=== PATIENT | female | born 1970 ===

== ENCOUNTER → 2019-09-13 | Outpatient (CLI) | payer BC, MEDICAID ==
[~2019-09-13] MED LIST: ALBU6.7H8 INH; ASPI-496 PO; CYCL5TAB PO; DICL112S2 TP; FENO160T PO; GABA-827 PO; HYDR-3237 PO; LAMO100T63 PO; LISI5TAB7 PO; LORA10TA75 PO; METF500T17 PO; PRAM0.125 PO; ROSU20TA2 PO; TRAZ-175 PO
[2019-09-13 11:54] LABS: BASOPHILS # (AUTO) 0.07 x10^3/uL (0-0.1); BASOPHILS % (AUTO) 1 % (0-1); EOSINOPHILS # (AUTO) 0.61 x10^3/uL (0-0.4); EOSINOPHILS % (AUTO) 7 % (1-7); LYMPHOCYTES # (AUTO) 2.98 x10^3/uL (1-3.4); LYMPHOCYTES % (AUTO) 34 % (22-44); MD NO; MEAN CORPUSCULAR HEMOGLOBIN 30.8 pg (27.0-34.8); MEAN CORPUSCULAR HGB CONC 33.1 g/dL (32.4-35.8); MEAN CORPUSCULAR VOLUME 93.1 fL (80-100); MEAN PLATELET VOLUME 8.7 fL (7.4-10.4); MONOCYTES # (AUTO) 0.71 x10^3/uL (0.2-0.8); MONOCYTES % (AUTO) 8 % (2-9); NEUTROPHILS # (AUTO) 4.48 x10^3/uL (1.8-6.8); NEUTROPHILS % (AUTO) 51 % (42-75); PLATELET COUNT 353 x10^3/uL (130-400); RED BLOOD COUNT 4.45 x10^6/uL (3.82-5.3); RED CELL DISTRIBUTION WIDTH 13.1 % (9.6-15.2)
[2019-09-13 12:05] LABS: ALANINE AMINOTRANSFERASE 39 U/L (12-78); ALBUMIN 4.1 g/dL (3.4-5.0); ANION GAP 7 mmol/L (5-15); CALCIUM 9.4 mg/dL (8.5-10.1); CHLORIDE 106 mmol/L (98-107); CREATININE 1.03 mg/dL (0.55-1.02)
[2019-09-13 12:07] LABS: ALKALINE PHOSPHATASE 61 U/L (45-117); BILIRUBIN,TOTAL 0.5 mg/dL (0.2-1.0); TOTAL PROTEIN 8.1 g/dL (6.4-8.2)
== END | disposition home or self-care (01) ==
LOC: STAR 10:43
PROVIDERS: ATTEND Orthopaedic Surgery
DX: Z01.818 Encounter for other preprocedural examination (principal); M17.12 Unilateral primary osteoarthritis, left knee; M25.562 Pain in left knee
CPT/HCPCS: 36415; 80053; 85025; 87081; 93005

== ENCOUNTER 2019-09-17 05:40 | Observation (INO) | payer BC, MEDICAID ==
[~2019-09-17] VITALS: Ht 160 cm; Wt 92.0 kg
[2019-09-17] MEDS ORDERED: LACTATED RINGERS 1,000 ML IV SCH (06:38)
[2019-09-17] MEDS ORDERED: MIDAZOLAM 1 MG/ML, 2ML ONE (06:39)
[2019-09-17] MEDS ORDERED: FENTANYL PF 250 MCG/5ML ONE ×2 (06:39→07:49)
[2019-09-17] MEDS ORDERED: PHENYLEPHRINE 10 MG/ML ONE (06:42)
[2019-09-17] MEDS ORDERED: TRANEXAMIC ACID 100 MG/ML, 10ML ONE (06:43)
[2019-09-17] MEDS ORDERED: KETOROLAC 60 MG/2 ML ONE (06:43)
[2019-09-17] MEDS ORDERED: VANCOMYCIN 1,000 MG ONE (06:44)
[2019-09-17] MEDS ORDERED: SODIUM CHLORIDE 0.9% 50 ML ONE (06:44)
[2019-09-17] MEDS ORDERED: morphine SULFATE/PF 1 MG/ML, 10ML ONE (06:44)
[2019-09-17] MEDS ORDERED: ROPIvacaine/PF 0.2%, 20 ML ONE ×2 (06:44)
[2019-09-17] MEDS ORDERED: EPINEPHRINE 1 MG/ML, 1ML ONE (06:44)
[2019-09-17] MEDS ORDERED: SCOPOLAMINE 1MG PATCH TD SCH (07:00)
[2019-09-17] MEDS ORDERED: HALOPERIDOL 5 MG/ML IV PRN (07:00)
[2019-09-17] MEDS ORDERED: hydrALAzine 20 MG/ML, 1ML IV PRN (07:00)
[2019-09-17] MEDS ORDERED: GABAPENTIN 300 MG CAPSULE PO ONE (07:00)
[2019-09-17] MEDS ORDERED: morphine SULFATE 10 MG/ML, 1ML IVPush PRN (07:00)
[2019-09-17] MEDS ORDERED: HYDROmorphone 1 MG/ML, 1ML INJ IVPush PRN (07:00)
[2019-09-17] MEDS ORDERED: OXYcodone 5 MG/5 ML ORAL.SOL UDC PO PRN (07:00)
[2019-09-17] MEDS ORDERED: ACETAMINOPHEN 500 MG TABLET PO ONE (07:00)
[2019-09-17] MEDS ORDERED: MEPERIDINE/PF 25MG/0.5ML IVPush PRN (07:00)
[2019-09-17] MEDS ORDERED: FENTANYL PF 100 MCG/2ML IV PRN (07:00)
[2019-09-17] MEDS ORDERED: CHLORHEXIDINE 15 ML UDC MM ONE (07:00)
[2019-09-17] MEDS ORDERED: LIDOCAINE-MPF 1%, 2ML INFIL ONE (07:00)
[2019-09-17] MEDS ORDERED: PROMETHAZINE 25 MG/ML, 1ML IVPush PRN (07:00)
[2019-09-17] MEDS ORDERED: ALBUTEROL SULFATE 2.5 MG/3 ML NPPB PRN (07:00)
[2019-09-17] MEDS ORDERED: LABETALOL 5MG/ML, 20ML IV PRN (07:00)
[2019-09-17] MEDS ORDERED: GLYCOPYRROLATE 0.2MG/1ML, 5ML ONE (07:44)
[2019-09-17] MEDS ORDERED: ONDANSETRON 2MG/ML, 2ML ONE (07:44)
[2019-09-17] MEDS ORDERED: DEXAMETHASONE 4 MG/ML, 1ML ONE (07:44)
[2019-09-17] MEDS ORDERED: ROCURONIUM 10MG/ML,5ML ONE (07:44)
[2019-09-17] MEDS ORDERED: NEOSTIGMINE 1 MG/ML, 10ML ONE (07:44)
[2019-09-17] MEDS ORDERED: PROPOFOL 10 MG/ML, 20ML ONE (07:44)
[2019-09-17] MEDS ORDERED: CEFAZOLIN 1,000 MG ONE (07:44)
[2019-09-17] MEDS ORDERED: METHYLENE BLUE 10 MG/ML 10ML ONE (07:49)
[2019-09-17] MEDS ORDERED: FENTANYL PF 100 MCG/2ML ONE ×2 (08:18→09:17)
[2019-09-17] MEDS ORDERED: HYDROmorphone 1 MG/ML, 1ML INJ ONE (09:18)
[2019-09-17] MEDS ORDERED: OXYcodone 5 MG/5 ML ORAL.SOL UDC ONE (09:18)
[2019-09-17] MEDS ORDERED: ONDANSETRON 2MG/ML, 2ML IVPush PRN (11:30)
[2019-09-17] MEDS ORDERED: PENNSAID HOMEMISC PRN (12:00)
[2019-09-17] MEDS ORDERED: ALBUTEROL SULFATE 2.5 MG/3 ML HHN PRN (12:00)
[2019-09-17] MEDS ORDERED: POTASSIUM CHLORIDE 10 MEQ in D5%-0.45% NACL 1,000 ML IV SCH (12:00)
[2019-09-17] MEDS ORDERED: HYDROcodone/APAP 7.5-325MG/15ML UDC PO PRN (12:00)
[2019-09-17] MEDS: KETOROLAC 30 MG/1 ML IVPush SCH ×2 (12:34→20:57)
[2019-09-17] MEDS: ACETAMINOPHEN 325 MG TABLET PO SCH ×4 (12:35→23:38)
[2019-09-17] MEDS ORDERED: LORATADINE 10 MG TABLET PO PRN (16:00)
[2019-09-17] MEDS: metFORMIN 500 MG TABLET PO SCH (16:29)
[2019-09-17] MEDS: CEFAZOLIN PMX 1GM/50ML 50 ML IVPB SCH ×2 (16:29→23:38)
[2019-09-17 18:33] VITALS: BP 104/66
[2019-09-17] MEDS: LAMOTRIGINE 25 MG TABLET PO SCH (20:57)
[2019-09-17] MEDS ORDERED: LAMOTRIGINE 100 MG TABLET PO SCH (21:00)
[2019-09-17] MEDS ORDERED: LAMOTRIGINE 25 MG TABLET PO SCH ×2 (21:00)
[2019-09-17] MEDS ORDERED: CYCLOBENZAPRINE 10 MG TABLET PO PRN ×2 (21:00)
[2019-09-17] MEDS ORDERED: PRAMIPEXOLE 0.125MG TABLET PO SCH (21:00)
[2019-09-17] MEDS ORDERED: ATORVASTATIN 80 MG TABLET PO SCH (21:00)
[2019-09-17] MEDS ORDERED: GABAPENTIN 400 MG CAPSULE PO SCH (21:00)
[2019-09-17] MEDS ORDERED: LISINOPRIL 5 MG TABLET PO SCH (21:00)
[2019-09-17 23:58] VITALS: BP 113/69
[2019-09-18] MEDS ORDERED: TRAZODONE 100MG TABLET PO PRN (01:30)
[2019-09-18 03:16] VITALS: BP 101/65
[2019-09-18] MEDS: ACETAMINOPHEN 325 MG TABLET PO SCH ×2 (03:31→07:33)
[2019-09-18] MEDS: KETOROLAC 30 MG/1 ML IVPush SCH (04:21)
[2019-09-18] MEDS ORDERED: ASPIRIN 81 MG TABLET EC PO SCH (06:00)
[2019-09-18 06:34] VITALS: BP 102/51
[2019-09-18] MEDS: LAMOTRIGINE 25 MG TABLET PO SCH (07:33)
[2019-09-18] MEDS: metFORMIN 500 MG TABLET PO SCH (07:34)
[2019-09-18] MEDS ORDERED: FENOFIBRATE 145 MG TABLET PO SCH (09:00)
[2019-09-18] MEDS ORDERED: CYCLOBENZAPRINE 10 MG TABLET PO SCH (21:00)
== END 2019-09-18 10:15 | disposition home or self-care (01) ==
LOC: OUT 05:40 → 4NE 10:35 → OUT 10:42 → DCLOUNGE 09-18 10:03
PROVIDERS: ADMIT Orthopaedic Surgery; ATTEND Orthopaedic Surgery
DX: Z03.818 Encounter for observation for suspected exposure to other biological agents ruled out (principal); M17.12 Unilateral primary osteoarthritis, left knee; M19.90 Unspecified osteoarthritis, unspecified site; I10 Essential (primary) hypertension; E78.5 Hyperlipidemia, unspecified; E11.9 Type 2 diabetes mellitus without complications; J45.909 Unspecified asthma, uncomplicated; F17.200 Nicotine dependence, unspecified, uncomplicated; Z79.899 Other long term (current) drug therapy
CPT/HCPCS: 27447; 82962; 96365; 96366; 96375; 96376; 97110; 97161; 97530; C1713; C1776; G0378; J0171; J0690; J1100; J1885; J2250; J2274; J2370; J2405; J2704; J2710; J2795; J3010; J3370; J3480; J7120; Q9968; U0001